=== PATIENT | male | born 1980 ===

== ENCOUNTER 2021-02-01 20:31 | Emergency (ER) | payer BC, SELFPAY ==
--- NOTE | 2021-02-01 21:18 | ER ---
Nurse's Notes [facility] Name: Balaji Hussein Age: 40 yrs Sex: Male : 1980 Arrival Date: 02/01/2021 Time: 20:35 Bed Waiting Private MD: Diagnosis: Presentation: 02/01 20:59 Chief complaint: Patient states: Pt stated, "Its not beating right like its fluttering kg and chest pressure." Pt stated its been happening on and off for one week but the last three days pretty steady. Coronavirus screen: Client denies travel out of the [place] in the last 14 days. At this time, unable to obtain information related to travel outside the [place] At this time, the client does not indicate any symptoms associated with coronavirus-19. Ebola Screen: Patient negative for fever greater than or equal to 101.5 degrees Fahrenheit, and additional compatible Ebola Virus Disease symptoms Patient denies exposure to infectious person. Patient denies travel to an Ebola-affected area in the 21 days before illness onset. Initial Sepsis Screen: Does the patient meet any 2 criteria? No. Patient's initial sepsis screen is negative. Does the patient have a suspected source of infection? No. Patient's initial sepsis screen is negative. Risk Assessment: Do you want to hurt yourself or someone else? Patient reports no desire to harm self or others. Onset of symptoms was January 25, 2021. 20:59 Method Of Arrival: Ambulatory kg 20:59 Acuity: DELORIS 3 kg Triage Assessment: 21:03 General: Appears in no apparent distress. Behavior is calm, cooperative, quiet. Pain: kg Denies pain. 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 - Social history:: Smoking status: Patient denies any tobacco usage or history of. Patient uses alcohol, occasionally. Screenin:05 Abuse screen: Denies threats or abuse. Denies injuries from another. Nutritional kg screening: No deficits noted. Tuberculosis screening: No symptoms or risk factors identified. Fall Risk None identified. Assessment: 21:18 Reassessment: Pt stated, "I didn't want to come my made me and I have an kg appointment with my doctor Saturday. I just wanted to make sure I'm not dying. I dont want to spend the extra money on x-ray and labs, I'm just going to see my doctor on Saturday. ". Vital Signs: 20:59 BP 130 / 74; Pulse 58; Resp 18; Temp 98.6(O); Pulse Ox 100% on R/A; Weight 87.54 kg kg (M); Height 6 ft. 0 in. (182.88 cm) (R); Pain 0/10; 20:59 Body Mass Index 26.18 (87.54 kg, 182.88 cm) kg ED Course: 20:35 Patient arrived in ED. bp1 21:03 Triage completed. kg 21:03 Arm band placed on left wrist. kg 21:05 Patient has correct armband on for positive identification. kg Administered Medications: No medications were administered Outcome: 21:17 Patient left the ED. kg Signatures: Debbie Faith Kristen, RN RN kg
[2021-02-02 16:06] VITALS: BP 130/74; TEMP 98.6; O2SAT 100
== END 2021-02-01 21:17 | disposition left against medical advice (07) ==
LOC: ER 20:31
DX: Z53.21 Procedure and treatment not carried out due to patient leaving prior to being seen by health care provider (principal)
CPT/HCPCS: 93005; 99281